=== PATIENT | male | born 1950 | race Caucasian/White ===

== ENCOUNTER 2016-09-29 05:31 | Day surgery (SDC) | payer OTHER ==
[~2016-09-29] VITALS: Ht 174 cm; Wt 86.2 kg
[~2016-09-29 05:31] MED LIST: 24HOUR ALLERGY10 MG PO; FISH OIL 1,0001 EAC7 PO; LIPITOR20 MG PO; LIPITOR40 MG PO; LO-DOSE ASPIRIN81 M2 PO; LOSARTAN POTASS25 MG PO; MAGNESIUM250 MG PO; METAXALONE800 MG PO; PERCOCET 5/31 TABLET PO; SINGULAIR10 MG PO; TOPROL XL100 MG PO; TRAMADOL HCL50 MG PO
[2016-09-29 06:16] VITALS: BP 144/85
[2016-09-29 12:10] VITALS: BP 152/81
[2016-09-29 13:16] VITALS: BP 126/68
== END 2016-09-29 13:16 | disposition home or self-care (01) ==
LOC: SDC 05:31
DX: L72.0 Epidermal cyst (principal); L76.21 Postprocedural hemorrhage of skin and subcutaneous tissue following a dermatologic procedure; I25.10 Atherosclerotic heart disease of native coronary artery without angina pectoris; I25.2 Old myocardial infarction; Z86.79 Personal history of other diseases of the circulatory system; Z98.890 Other specified postprocedural states; Z79.82 Long term (current) use of aspirin; Z87.891 Personal history of nicotine dependence
CPT/HCPCS: 88304; J0690; J2250; J3010